=== PATIENT | female | born 1975 | race Caucasian/White ===

== ENCOUNTER 2016-06-11 21:53 | Emergency (ER) | payer OTHER ==
[~2016-06-11 21:53] MED LIST: BLM PO; MEDROL DOSEPAK1 PAC PO
[2016-06-11] MEDS ORDERED: HYDROCHLOROTHIA25 M1 PO (22:01)
[2016-06-11] MEDS ORDERED: AYGESTIN5 MG PO (22:01)
[2016-06-11] MEDS ORDERED: QUINAPRIL HCL40 M1 PO (22:01)
[2016-06-11] MEDS ORDERED: PANTOPRAZOLE SO40 M1 PO (22:01)
[2016-06-11 22:02] VITALS: BP 154/94
[2016-06-11] MEDS ORDERED: METFORMIN HCL500 M3 PO (22:02)
--- NOTE | 2016-06-11 22:21 | ED SKIN/ALLERGY COMPLAINT ---
History of Present Illness General Chief Complaint: Allergy Symptoms Stated Complaint: " BURNING/ ITCHY/ PAIN ALL OVER BODY, HIVES X4DYS" Source: patient, old records Exam Limitations: no limitations Vital Signs & Intake/Output Vital Signs & Intake/Output Vital Signs Date Time Temp Pulse Resp B/P Pulse O2 O2 Flow FiO2 Ox Delivery Rate 06/11 2202 99 22 154/94 99 Room Air Allergies Coded Allergies: No Known Allergies (06/11/16) Reconcile Medications Hydrochlorothiazide 25 MG TABLET 1 TAB PO DAILY HTN (Reported) Hydroxyzine HCl 50 MG TABLET 1 TAB PO TID PRN ITCHING LIDO/MAAL/GAIL (Magic Mouthwash) (Lido-Visc2% 30ML/[id number],MAALOX 120ml) 270 ML CORAZON 10 ML PO TID PRN Mouth Pain SWISH AND SWALLOW Metformin HCl 500 MG TABLET 1 TAB PO BID DM (Reported) Methylprednisolone. (Medrol) 4 MG TAB.DS.PK 1 DP PO AD urticaria 6 on day 1 then reduce by one tablet daily until gone Methylprednisolone. (Medrol) 1 PAC PAC 1 PAC PO DAILY TONSILITIS AJ DIRECTED Norethindrone (Aygestin) 5 MG TABLET 1 TAB PO DAILY MENSTR FLOW (Reported) Pantoprazole Sodium 40 MG TABLET.DR 1 TAB PO DAILY GERD (Reported) Quinapril HCl 40 MG TABLET 1 TAB PO DAILY HTN (Reported) Triage Note: per pt itching skin since april when dx with anemia. last 4 days hives noted in various stages on torse. no worse sob since dx with anemia. started mrrethinatrone 2 days ago, but hives were there already Triage Nurses Notes Reviewed? yes Onset: Abrupt Duration: constant, continues in ED, getting worse, X 2 MONTHS Timing: recent history Severity: mild, moderate Severity Numbers: 5 Location: generalized Possible Factors: no cause identified No Modifying Factors: none Associated Symptoms: DENIES : No Patient currently breastfeeds: No HPI: 41-year-old female with recently diagnosed anemia secondary to menorrhagia it is believed presents complaining of generalized pruritus since April 2016. She states the pruritus began at the same time when she was diagnosed with anemia. She states over the past 4 days the symptoms have gotten worse taking Benadryl and using [id number] creams without improvement. The patient recently began NORETHINDRONE to help alleviate menorrhagia. She has not sought care for the symptoms until today no history of allergic reactions or anaphylaxis in the past. She denies any difficulty breathing shortness of breath nausea vomiting diarrhea difficulty swallowing area there is no pain she denies any sick contacts or recent travel with similar symptoms (BIPIN LLANES) Past History Travel History Traveled to [place] past 21 day No Medical History Any Pertinent Medical History? see below for history Neurological: NONE EENT: NONE Cardiovascular: hypertension Respiratory: NONE Gastrointestinal: ACID REFLUX Hepatic: NONE Renal: NONE Musculoskeletal: NONE Psychiatric: NONE Endocrine: diabetes Blood Disorders: anemia Surgical History Surgical History: non-contributory Psychosocial History What is your primary language [place] Tobacco Use: Never used Family History Hx Contributory? No (BIPIN LLANES) Review of Systems Review of Systems Constitutional: Reports: no symptoms, see HPI. All Other Systems: Reviewed and Negative Comments Review of systems: See HPI, All other systems negative. Constitutional, no chills no fever, no malaise HEENT: No visual changes no sore throat no congestion Cardiovascular: No chest pain , no palpitation Skin, SEE HPI Respiratory: No dyspnea no cough no sputum GI: No nausea no vomiting, no diarrhea : No dysuria Muscle skeletal: No joint pain, no back pain, no neck pain, Neurologic: No numbness no headache Psych: No stress Heme/endocrine: No bruising no bleeding Immunology: No lymphadenopathy (BIPIN LLANES) Physical Exam Physical Exam General Appearance: well developed/nourished, no apparent distress, alert, awake , comfortable Comments: Well-developed well-nourished patient in no apparent distress. HEENT: Atraumatic, extraocular motion intact pharynx is within normal limits no erythema no trismus no uvula displacement Neck: Supple, FROM, no lymphadenopathy Back: FROM, Nontender Cardiovascular: Regular rate and rhythms no murmurs rubs or gallops, Respiratory: Chest nontender.There were no bony deformities, no asymmetry. No respiratory distress. Patient speaking in full complete sentences. Breath sounds clear to auscultation bilaterally: NO W/R/R Extremities: full range of motion Neuro: Alert and oriented x3 Skin: Warm & dry; macular rash noted to bilateral volar upper extremities and chest wall no bulla no blisters Psych: Mood affect normal, normal memory normal judgment. (BIPIN LLANES) Progress Differential Diagnosis: abscess/cellulitis, allergic reaction, anaphylaxis, asthma, contact dermatitis, erythema multiforme, toxic shock syndrome, urticaria , MEDICATION ADVERSE EFFECT Plan of Care: Current Medications Sig/Karen Start time Last Medication Dose Stop Time Status Admin Hydroxyzine HCl 50 MG ONCE ONE 06/11 2244 UNVr (Atarax) 06/11 2245 Prednisone 60 MG ONCE ONE 06/11 2244 UNVr 06/11 2245 Prescription for Atarax prednisone provided advised close follow-up with her primary care physician, return anytime sooner if any concerns patient clinically appears well she feels comfortable with this plan cleared for discharge (BIPIN LLANES) Departure Departure Time of Disposition: 2230 Disposition: HOME OR SELF CARE Condition: Stable Clinical Impression Primary Impression: Urticaria Referrals: DEEPTHI ALONSO,ACE Glover (PCP/Family) Additional Instructions: Follow-up with your primary care physician this week. Vistaril as needed for itching, Medrol Dosepak as directed Departure Forms: Customer Survey General Discharge Information Prescriptions: Current Visit Scripts Methylprednisolone. (Medrol) 1 DP PO AD #1 DP 6 on day 1 then reduce by one tablet daily until gone Hydroxyzine HCl 1 TAB PO TID PRN ITCHING #30 TAB (BIPIN LLANES) PA/CORPORATE BUYER Co-Sign Statement Statement: ED Attending supervision documentation- [] I saw and evaluated the patient. I have also reviewed all the pertinent lab results and diagnostic results. I agree with the findings and the plan of care as documented in the PA's/CORPORATE BUYER's documentation. [X] I have reviewed the ED Record and agree with the PA's/CORPORATE BUYER's documentation. [] Additions or exceptions (if any) to the PAs/CORPORATE BUYER's note and plan are summarized below: [] (KAHTY ALONSO,ROBERT)
[2016-06-11] MEDS ORDERED: HYDROXYZINE HCL50 M1 PO (22:32)
[2016-06-11] MEDS ORDERED: MEDROL4 M2 PO (22:32)
== END 2016-06-11 22:40 ==
LOC: ERH 21:53
DX: L50.9 Urticaria, unspecified (principal)